=== PATIENT | female | born 1985 | race Caucasian/White ===

== ENCOUNTER 2016-07-28 11:14 | Emergency (ER) | payer MEDICAID ==
[2009-12-26 11:43] VITALS: BMI 39.9
== END 2016-07-28 14:01 | disposition home or self-care (01) ==
LOC: D.ER 11:14
DX: S99.921A Unspecified injury of right foot, initial encounter (principal); W06.XXXA Fall from bed, initial encounter; Y93.89 Activity, other specified; Y92.013 Bedroom of single-family (private) house as the place of occurrence of the external cause; F41.9 Anxiety disorder, unspecified; K21.9 Gastro-esophageal reflux disease without esophagitis; E03.9 Hypothyroidism, unspecified; F17.200 Nicotine dependence, unspecified, uncomplicated